=== PATIENT | male | born 1995 | race Caucasian/White ===

== ENCOUNTER 2024-05-05 08:02 | Day surgery (SDC) | payer OTHER ==
[~2024-05-05] VITALS: Ht 177.8 cm; Wt 59.0 kg
[~2024-05-05 08:02] MED LIST: MIRALAX17 GM PO; MULTIVITAMI1 PO
[2024-05-05] MEDS ORDERED: LACTATED RINGER'S 1,000 ML IV ONE (08:11)
[2024-05-05 09:11] VITALS: BP 108/53
[2024-05-05] MEDS ORDERED: LIDOCAINE HCL 2% 2ML SDV IV ONE (14:34)
[2024-05-05] MEDS ORDERED: PROPOFOL 200 MG/20 ML VIAL IV ONE (14:34)
== END 2024-05-05 09:43 | disposition home or self-care (01) ==
LOC: ENDO 08:02 → ORM 08:30 → ENDO 09:15
PROVIDERS: ATTEND Internal Medicine Gastroenterology
DX: K58.1 Irritable bowel syndrome with constipation (principal); K64.8 Other hemorrhoids